=== PATIENT | male | born 1940 | race Caucasian/White ===

== ENCOUNTER 2017-06-25 14:09 | Emergency (ER) | payer OTHER ==
[2017-06-25 14:32] VITALS: BP 125/79
--- NOTE | 2017-06-25 14:56 | UC ---
Skin Complaint HPI - HPI Summary HPI Summary: TICK BITE TO LEFT NIPPLE AREA 2 DAYS AGO. THINKS TICK WAS ATTACHED FOR OVER A DAY. NOW THERE IS A LARGE AREA OF REDNESS AROUND THE TICK BITE SITE. DENIES [place], FEVER, JOINT PAIN OR MUSCLE ACHES. FEELS WELL OVERALL. - History of Current Complaint Chief Complaint: UCSkin Time Seen by Provider: 06/25/17 14:46 Stated Complaint: TICK BITE Hx Obtained From: Patient Onset/Duration: Gradual Onset, Lasting Days, Still Present Timing: Constant Onset Severity: Moderate Current Severity: Moderate Pain Intensity: 0 Pain Scale Used: 0-10 Numeric Location: Discrete - LEFT BREAST Character: Redness Aggravating: Nothing Alleviating: Nothing Associated Signs & Symptoms: Negative: Nausea, Difficulty Breathing, Fever, Chills, Cough, Wheezing, Throat Tightening, Lightheadedness, Syncope, Drainage, Tenderness, Red Streaks Related History: Insect Bite/Sting - Allergy/Home Medications Allergies/Adverse Reactions: Allergies Allergy/AdvReac Type Severity Reaction Status Date / Time Sulfa Antibiotics Allergy Unknown Verified 06/25/17 14:29 Reaction Details Review of Systems Constitutional: Negative Skin: Rash Respiratory: Negative Cardiovascular: Negative Gastrointestinal: Negative Musculoskeletal: Negative Neurological: Negative All Other Systems Reviewed And Are Negative: Yes PMH/Surg Hx/FS Hx/Imm Hx Other Cancer History: MELANOMA LEFT EAR - Surgical History Surgical History: Yes Surgery Procedure, Year, and Place: LEFT EAR MELANOMA REMOVED,. TONSILLECTOMY A CHILD - Family History Known Family History: Negative: Hypertension, Diabetes - Social History Alcohol Use: Daily Substance Use Type: None Smoking Status (MU): Never Smoked Tobacco Physical Exam Triage Information Reviewed: Yes Appearance: Well-Appearing, No Pain Distress, Well-Nourished Vital Signs: Initial Vital Signs Temp 98.3 F 06/25/17 14:29 Pulse 78 06/25/17 14:29 Resp 17 06/25/17 14:29 BP 125/79 06/25/17 14:29 Pulse Ox 100 06/25/17 14:29 Vital Signs Reviewed: Yes Eyes: Positive: Conjunctiva Clear ENT: Positive: Hearing grossly normal Neck: Positive: Supple Respiratory: Positive: No respiratory distress, No accessory muscle use Cardiovascular: Positive: Pulses Normal Abdomen Description: Positive: Soft Musculoskeletal: Positive: No Edema Neurological: Positive: Alert Psychological: Positive: Age Appropriate Behavior Skin: Positive: rashes - 22CM X 13 CM AREA OF ERYTHEMA LEFT BREAST. NO CENTRAL CLEARING. NO TENDERNESS OR DRAINAGE. Course/Dx - Diagnoses Provider Diagnoses: CELLULITIS LEFT BREAST Discharge - Discharge Plan Condition: Stable Disposition: HOME Prescriptions: Doxycycline (Monohydrate) [Doxycycline Monohydrate] 1 cap PO BID #20 cap Patient Education Materials: Cellulitis (ED) Referrals: Coy Aquino MD [Primary Care Provider] - If Needed Additional Instructions: YOUR CLINICAL PRESENTATION IS MORE CONSISTENT WITH CELLULITIS STEMMING FROM THE TICK BITE THAN LYME DISEASE. HOWEVER GIVEN THE PREVALENCE OF LYME DISEASE IN THIS AREA WILL TREAT THE CELLULITIS WITH DOXYCYCLINE WHICH ALSO COVERS LYME. BE AWARE THAT YOU WILL BE MORE SENSITIVE TO THE SUN WHILE ON THIS MEDICATION. BE SURE TO TAKE EXTRA SUN PRECAUTIONS. SEEK FOLLOW-UP IF YOU ARE NOT IMPROVING EXPECTED.
== END 2017-06-25 15:11 | disposition home or self-care (01) ==
LOC: UCEAST 14:09
DX: N61.0 Mastitis without abscess (principal); Z85.820 Personal history of malignant melanoma of skin; Z88.2 Allergy status to sulfonamides
CPT/HCPCS: 99212; G0463

== ENCOUNTER 2019-06-04 14:02 | Emergency (ER) | payer OTHER ==
[2019-06-04] MEDS ORDERED: Tetan/Diph/Pertus SYR(Tdap)* 0.5 ML SYR(BOOSTRIX) use SYR IM ONE (14:13)
--- NOTE | 2019-06-04 14:17 | UC ---
Minor Trauma HPI - HPI Summary HPI Summary: 79-year-old gentleman presents after mechanical ground level fall. Patient was playing tennis, tripped over his tennis bag and fell onto his face. Patient denies any pain. No LOC, not on blood thinners. Patient called his primary care doctor who he has not seen in several years, who was unable to see him in office so he came to the emergency Department. No neck or back pain. Patient unsure of last tetanus shot - History of Current Complaint Stated Complaint: HEAD LACERATION Time Seen by Provider: 06/04/19 14:04 - Allergies/Home Medications Allergies/Adverse Reactions: Allergies Allergy/AdvReac Type Severity Reaction Status Date / Time Sulfa (Sulfonamide Allergy Unknown Verified 06/04/19 14:53 Antibiotics) Reaction Details Home Medications: Home Medications NK [No Home Medications Reported] 06/04/19 [History Confirmed 06/04/19] PMH/Surg Hx/FS Hx/Imm Hx Previously Healthy: Yes - Surgical History Surgical History: Yes Surgery Procedure, Year, and Place: LEFT EAR MELANOMA REMOVED,. TONSILLECTOMY A CHILD - Family History Known Family History: Negative: Hypertension, Diabetes - Social History Alcohol Use: Daily Substance Use Type: None Smoking Status (MU): Never Smoked Tobacco Review of Systems All Other Systems Reviewed And Are Negative: Yes Skin: Positive: Other - abrasion Physical Exam - Summary Physical Exam Summary: Constitutional: Well-developed, Well-nourished, Alert, Cooperative Skin: abrasion L forehead, L lomeli w superficial laceration.R HENT: Normocephalic, abrasion to L forehead, periorbital ecchymosis. Midface stable, Dentition intact Eyes: EOM normal, PERRL Neck: Trachea is midline. No stridor; No JVD; No step off; No posterior cervical spine tenderness Cardio: Rhythm regular, rate normal Heart sounds normal; Intact distal pulses; The pedal pulses are 2+ and symmetric. Radial pulses are 2+ and symmetric. Pulmonary/Chest wall: Effort normal; Breath sounds normal; Equal chest rise; No flail segment; No rib tenderness; No sternal tenderness Abd: Soft, Appearance normal. No distension; No tenderness Musculoskeletal: No bony tenderness to R lomeli. Full ROM and no tenderness at hips, ankles, shoulders, elbows and knees; No joint swelling; No vertebral body tenderness; No paraspinal tenderness; No step off or deformity of the spine Neuro: Alert, Oriented x3, GCS 15. Strength 5/5 all extremities. Psych: Mood and affect Normal Diagnostics - Radiology No standard instances Radiology Interpretation Completed By: Radiologist Summary of Radiographic Findings: CT Cervical spine without acute abnormality. CT brain w frontal scalp hematoma, no acute intracranial abnormality. C Spine Clearance Note. Patient was evaluated today for clearance of C-spine precautions. Patient was awake and alert and cooperative for exam. Patient without neurologic symptoms or neck pain. Patient did not exhibit any focal tenderness to direct palpation of the cervical spine. Patient was able to move head in all directions without limitation in the range of motion or without inciting additional pain or discomfort. No midline tenderness. Denies pain, weakness or numbness with flexion, extension, or rotation of the neck. [place] collar removed. C-collar cleared by Nexus Criteria. Based on this examination, C-spine precautions are no longer required and may be discontinued. Re-Evaluation - Re-Evaluation First Eval Comment: 15:30 CT face w nasal bone fracture. Patient states these are old. Patient advised he can follow up with plastic surgery as needed Minor Trauma Course/Dx - Course Course Of Treatment: 79 y/o male p/w GLF PE w forehead abrasion, periorbital ecchymosis. check Brain face cspine CT. Placed in c collar. update tetanus - Differential Dx/Diagnosis Provider Diagnosis: Nasal bone fracture, Fall from ground level, Abrasion head Discharge - Sign-Out/Discharge Documenting (check all that apply): Patient Departure All imaging exams completed and their final reports reviewed: Yes - Discharge Plan Condition: Stable Disposition: HOME Patient Education Materials: Nasal Fracture in Children (ED), Fall Prevention for Older Adults (ED) Referrals: Coy Aquino MD [Primary Care Provider] - Additional Instructions: You were seeen at urgent care for follow-up. Her CT scan showed nasal bone fractures which are likely old. Please keep your wounds clean and dry, apply bacitracin. Return for worsening pain, drainage your wounds. Please seek medical attention or go to the emergency department for any worsening or concerning symptoms. Please follow up with your primary care doctor in 2-3 days. It was a pleasure taking care of you today. - Billing Disposition and Condition Condition: STABLE Disposition: Home
[2019-06-04 14:52] VITALS: BP 149/88
== END 2019-06-04 16:00 | disposition home or self-care (01) ==
LOC: UCEAST 14:02
DX: S02.2XXA Fracture of nasal bones, initial encounter for closed fracture (principal); S00.91XA Abrasion of unspecified part of head, initial encounter; W18.30XA Fall on same level, unspecified, initial encounter; Y93.73 Activity, racquet and hand sports; Y92.312 Tennis court as the place of occurrence of the external cause; Y99.8 Other external cause status
CPT/HCPCS: 70450; 70486; 72125; 90715; 99212; G0463

== ENCOUNTER 2019-06-05 21:19 | Emergency (ER) | payer OTHER ==
[2019-06-05 21:31] VITALS: BP 136/69
--- NOTE | 2019-06-05 22:00 | ED ---
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, denies LOC - History of Current Complaint Chief Complaint: UCSkin Time Seen by Provider: 06/05/19 21:49 Stated Complaint: ARM INJURY Hx Obtained From: Patient, Family/[employer] Hx From Patient Unobtainable Due To: Extremis Onset/Duration: Started Days Ago Skin Exposure Onset/Duration: Days Ago Timing: Constant Onset Severity: Moderate Current Severity: Moderate Pain Intensity: 2 - Allergy/Home Medications Allergies/Adverse Reactions: Allergies Allergy/AdvReac Type Severity Reaction Status Date / Time Sulfa (Sulfonamide Allergy Unknown Verified 06/04/19 14:53 Antibiotics) Reaction Details PMH/Surg Hx/FS Hx/Imm Hx Previously Healthy: Yes Endocrine/Hematology History: Denies: Hx Diabetes Cardiovascular History: Denies: Hx Hypertension Respiratory History: Denies: Hx Chronic Obstructive Pulmonary Disease (COPD) Sensory History: Reports: Hx Contacts or Glasses - GLASSES Denies: Hx Hearing Aid Opthamlomology History: Reports: Hx Contacts or Glasses - GLASSES - Surgical History Surgery Procedure, Year, and Place: LEFT EAR MELANOMA REMOVED,. TONSILLECTOMY A CHILD Hx Anesthesia Reactions: No Infectious Disease History: No Infectious Disease History: Denies: Hx Clostridium Difficile, Hx Hepatitis, Hx Human Immunodeficiency Virus (HIV), Hx of Known/Suspected MRSA, Hx Shingles, Hx Tuberculosis, Hx Known/ Suspected VRE, Hx Known/Suspected VRSA, History Other Infectious Disease, Traveled Outside the [place] in Last 30 Days - Family History Known Family History: Negative: Hypertension, Diabetes - Social History Alcohol Use: Daily Alcohol Amount: 4 beers/daily Substance Use Type: Reports: None Smoking Status (MU): Never Smoked Tobacco Review of Systems Constitutional: Negative Eyes: Negative ENT: Negative Cardiovascular: Negative Respiratory: Negative Gastrointestinal: Negative Genitourinary: Negative Skin: Other - open wounds Neurological: Negative Psychological: Normal All Other Systems Reviewed And Are Negative: Yes Physical Exam - Summary Physical Exam Summary: Vital Signs Reviewed: Yes Eye Exam: Normal Eyes: Positive: Conjunctiva Clear ENT: Positive: Normal ENT inspection Neck: Positive: Supple Respiratory Exam: Normal Respiratory: Positive: Lungs clear Cardiovascular: Positive: RRR Abdomen Description: Positive: Nontender Musculoskeletal Exam: Normal Neurological Exam: Normal Psychological Exam: Normal Skin Exam: multiple skin abrasions on RUE size 5x4cm, RLE size 2x3cm, contusion on left forehead siz3 3x4cm, small abrasion on left cheek 2x3cm, mild sero-sanguinous oozing Vital Signs On Initial Exam: Initial Vitals Temp Pulse Resp BP Pulse Ox 36.3 C 93 16 136/69 99 06/05/19 21:23 06/05/19 21:23 06/05/19 21:23 06/05/19 21:23 06/05/19 21:23 Completion Of Physical Exam Limited Due To: Dementia Diagnostics - Vital Signs Vital Signs Temp Pulse Resp BP Pulse Ox 06/05/19 21:23 36.3 C 93 16 136/69 99 - Laboratory Lab Statement: Any lab studies that have been ordered have been reviewed, and results considered in the medical decision making process. Course/Dx - Course Assessment/Plan: woundcare adminstered, keflex TIC x 10 days, Tdap booster received yesterday per pt - Diagnoses Provider Diagnoses: Abrasion, Open wound, Open wounds involving multiple regions of upper extremity Discharge - Sign-Out/Discharge Documenting (check all that apply): Patient Departure All imaging exams completed and their final reports reviewed: Yes - Discharge Plan Condition: Stable Disposition: HOME Patient Education Materials: Acute Wounds (ED), Acute Wound Care (ED) Referrals: Coy Aquino MD [Primary Care Provider] - Additional Instructions: return to urgent care or go to PCP for wound check in 2 days - Billing Disposition and Condition Condition: STABLE Disposition: Home
[2019-06-05] MEDS ORDERED: Cephalexin CAP* 500 MG PO ONE (22:02)
== END 2019-06-05 22:25 | disposition home or self-care (01) ==
LOC: UCEAST 21:19
DX: S00.81XA Abrasion of other part of head, initial encounter (principal); W22.01XA Walked into wall, initial encounter; Y92.019 Unspecified place in single-family (private) house as the place of occurrence of the external cause; Z88.2 Allergy status to sulfonamides
CPT/HCPCS: 99213; A9270-GY; G0463

== ENCOUNTER 2019-06-07 17:24 | Emergency (ER) | payer OTHER ==
[2019-06-07 18:06] VITALS: BP 161/81
--- NOTE | 2019-07-19 19:37 | UC ---
Skin Complaint HPI - HPI Summary HPI Summary: patient her for wound check and dressing changes - History of Current Complaint Chief Complaint: UCSkin Time Seen by Provider: 06/07/19 17:37 Stated Complaint: FACIAL AND ARM INJURY Hx Obtained From: Patient Onset/Duration: Sudden Onset, Lasting Days Timing: Constant Pain Intensity: 0 Pain Scale Used: 0-10 Numeric Location: Diffuse Aggravating Factor(s): Nothing Alleviating Factor(s): Nothing, Unknown Associated Signs & Symptoms: Positive: Negative - Allergy/Home Medications Allergies/Adverse Reactions: Allergies Allergy/AdvReac Type Severity Reaction Status Date / Time Sulfa (Sulfonamide Allergy Unknown Verified 06/09/19 13:18 Antibiotics) Reaction Details PMH/Surg Hx/FS Hx/Imm Hx Previously Healthy: Yes - Surgical History Surgical History: Yes Surgery Procedure, Year, and Place: LEFT EAR MELANOMA REMOVED,. TONSILLECTOMY A CHILD - Family History Known Family History: Negative: Hypertension, Diabetes - Social History Occupation: Retired Lives: With Family Alcohol Use: Daily Alcohol Amount: 4 beers/daily Substance Use Type: None Smoking Status (MU): Never Smoked Tobacco Review of Systems All Other Systems Reviewed And Are Negative: Yes Constitutional: Positive: Negative Skin: Positive: Other - skin tears-with bloody oozing throgh some of the gauze Eyes: Positive: Negative ENT: Positive: Negative Respiratory: Positive: Negative Cardiovascular: Positive: Negative Gastrointestinal: Positive: Negative Genitourinary: Positive: Negative Motor: Positive: Negative Neurovascular: Positive: Negative Musculoskeletal: Positive: Negative Neurological: Positive: Negative Psychological: Positive: Negative Is Patient Immunocompromised?: No Physical Exam Triage Information Reviewed: Yes Appearance: Well-Appearing, No Pain Distress, Well-Nourished Vital Signs: Initial Vital Signs Temp 98 F 06/07/19 17:33 Pulse 79 06/07/19 17:33 Resp 16 06/07/19 17:33 BP 161/81 06/07/19 17:33 Pulse Ox 100 06/07/19 17:33 Vital Signs Reviewed: Yes Eye Exam: Normal Eyes: Positive: Conjunctiva Clear ENT Exam: Normal ENT: Positive: Normal ENT inspection, Hearing grossly normal. Negative: Trismus , Muffled voice, Hoarse voice Neck exam: Normal Neck: Positive: Supple, Nontender Respiratory Exam: Normal Respiratory: Positive: No respiratory distress, No accessory muscle use Cardiovascular Exam: Normal Cardiovascular: Positive: RRR, Brisk Capillary Refill Musculoskeletal Exam: Normal Neurological Exam: Normal Neurological: Positive: Alert, Muscle Tone Normal Psychological Exam: Normal Skin: Positive: Other - no evidence of infection no streaking or drainage Course/Dx - Course Course Of Treatment: abdirahman and telfa applied patient to continue antibiotic and follow up plan- - Diagnoses Provider Diagnosis: Encounter for wound re-check Discharge ED - Sign-Out/Discharge Documenting (check all that apply): Patient Departure All imaging exams completed and their final reports reviewed: No Studies - Discharge Plan Condition: Stable Disposition: HOME Patient Education Materials: Skin Tear (ED), Acute Wounds (ED) Referrals: Coy Aquino MD [Primary Care Provider] - 2 Days - Billing Disposition and Condition Condition: STABLE Disposition: Home
== END 2019-06-07 18:19 | disposition home or self-care (01) ==
LOC: UCEAST 17:24
DX: Z53.8 Procedure and treatment not carried out for other reasons (principal)
CPT/HCPCS: 99212; G0463

== ENCOUNTER 2019-06-09 13:05 | Emergency (ER) | payer OTHER ==
[2019-06-09 13:18] VITALS: BP 156/74
--- NOTE | 2019-06-09 13:23 | UC ---
Skin Complaint HPI - HPI Summary HPI Summary: 79 yo male presents for wound check. He had a mechanical fall on 06/04 and sustained abrasions to his face and right elbow. The wounds were cleansed and bandaged. He has been returning every 2 days since for wound checks. Today he states he is feeling well and the wounds appear to be healing well. Denies increased pain, fever, or drainage from the sites. - History of Current Complaint Chief Complaint: UCGeneralIllness Time Seen by Provider: 06/09/19 13:22 Stated Complaint: WOUND CHECK Hx Obtained From: Patient Onset/Duration: Sudden Onset Current Severity: None Pain Intensity: 0 - Allergy/Home Medications Allergies/Adverse Reactions: Allergies Allergy/AdvReac Type Severity Reaction Status Date / Time Sulfa (Sulfonamide Allergy Unknown Verified 06/09/19 13:18 Antibiotics) Reaction Details PMH/Surg Hx/FS Hx/Imm Hx - Additional Past Medical History Additional PMH: None - Surgical History Surgical History: Yes Surgery Procedure, Year, and Place: LEFT EAR MELANOMA REMOVED,. TONSILLECTOMY A CHILD - Family History Known Family History: Negative: Hypertension, Diabetes - Social History Alcohol Use: Daily Alcohol Amount: 4 beers/daily Substance Use Type: None Smoking Status (MU): Never Smoked Tobacco Review of Systems All Other Systems Reviewed And Are Negative: Yes Constitutional: Positive: Negative Skin: Positive: Other - Abrasions Respiratory: Positive: Negative Cardiovascular: Positive: Negative Neurovascular: Positive: Negative Musculoskeletal: Positive: Negative Neurological: Positive: Negative Psychological: Positive: Negative Physical Exam - Summary Physical Exam Summary: GENERAL: NAD. WDWN. No pain distress. SKIN: Left forehead - healing superficial abrasion with scant bleeding. Left cheek - healing superficial abrasion with scant bleeding. Right elbow - ~4.0cm oval shaped healing superficial abrasion. No sites with erythema, edema, drainage, or sign of infection. CHEST: No accessory muscle use. Breathing comfortably and in no distress. CV: Pulses intact. Cap refill <2seconds NEURO: Alert. PSYCH: Age appropriate behavior. Triage Information Reviewed: Yes Vital Signs: Initial Vital Signs Temp 98.8 F 06/09/19 13:16 Pulse 100 06/09/19 13:16 Resp 20 06/09/19 13:16 BP 156/74 06/09/19 13:16 Pulse Ox 99 06/09/19 13:16 Vital Signs Reviewed: Yes Course/Dx - Course Course Of Treatment: All wounds were redressed. At this point his wounds seem to be healing well and are without signs of infection. He was provided with dressing materials to use at home and advised to gentle wash the areas with soap and water and change the dressings daily. F/u in 1 week with PCP for wound check or return sooner if he develops fever, pain, or drainage from the sites - Diagnoses Provider Diagnosis: Abrasion, face w/o infection, Abrasion of right elbow Discharge - Sign-Out/Discharge Documenting (check all that apply): Patient Departure All imaging exams completed and their final reports reviewed: No Studies - Discharge Plan Condition: Stable Disposition: HOME Patient Education Materials: Skin Tear (ED) Referrals: Coy Aquino MD [Primary Care Provider] - Additional Instructions: If you develop a fever, shortness of breath, chest pain, new or worsening symptoms - please call your PCP or go to the ED immediately. Please change the dressings daily until well healed. Please follow up in 1 week with your primary doctor to insure your wounds are healing well - Billing Disposition and Condition Condition: STABLE Disposition: Home
== END 2019-06-09 13:35 | disposition home or self-care (01) ==
LOC: UCEAST 13:05
DX: S00.81XD Abrasion of other part of head, subsequent encounter (principal); S50.311D Abrasion of right elbow, subsequent encounter; W19.XXXD Unspecified fall, subsequent encounter; Z88.2 Allergy status to sulfonamides
CPT/HCPCS: 99212; G0463